=== PATIENT | male | born 1955 | race Caucasian/White ===

== ENCOUNTER 2024-07-23 13:07 | Outpatient (CLI) | payer MEDICARE ==
[2024-07-23] MEDS ORDERED: Magnevist 469MG/ML 20 ML VIAL ONE (15:21)
== END 2024-07-23 13:08 | disposition home or self-care (01) ==
LOC: CSHMRI 13:07
PROVIDERS: ATTEND Otolaryngology Otolaryngic Allergy
DX: R43.0 Anosmia (principal); R42 Dizziness and giddiness; R90.82 White matter disease, unspecified
CPT/HCPCS: 36415; 70553; 76376; 82565